=== PATIENT | male | born 1935 | race Caucasian/White ===

== ENCOUNTER 2016-03-12 14:12 | Emergency (ER) | payer MEDICARE, BC ==
[~2016-03-12 14:12] MED LIST: AVOD0.5C PO; DILTSR120 PO; DOXA1TAB35 PO; FLEC50TA PO; RIVA15 PO; SYNT75TA PO
[2016-03-12 14:16] VITALS: BP 116/77; PULSE 134; RESP 18; TEMP 98.2; O2SAT 95
[2016-03-12 14:46] LABS: AUTOMATED NEUTROPHIL # 4.4 TH/MM3 (1.8-7.7); BASOPHIL % 0.7 % (0.0-2.0); EOSINOPHIL # 0.1 TH/MM3 (0-0.4); EOSINOPHIL % 1.5 % (0.0-4.0); HEMATOCRIT 41.2 % (39.0-51.0); HEMO FLAGS DIFF FINAL; LYMPH % 21.4 % (9.0-44.0); LYMPHOCYTE # 1.4 TH/MM3 (1.0-4.8); MEAN CELL VOLUME 91.8 FL (80.0-100.0); MEAN CORPUSCULAR HGB CONC 33.8 % (32.0-36.0); MONO % 8.2 % (0.0-8.0); NEUT % 68.2 % (16.0-70.0); PLATELET COUNT 188 TH/MM3 (150-450); RED BLOOD COUNT 4.49 MIL/MM3 (4.50-5.90); RED CELL DISTRIBUTION WIDTH 13.8 % (11.6-17.2); WHITE BLOOD COUNT 6.5 TH/MM3 (4.0-11.0)
[2016-03-12 14:54] LABS: ANION GAP 8 MEQ/L (5-15); BICARBONATE 25.9 MEQ/L (21.0-32.0); BLOOD UREA NITROGEN 20 MG/DL (7-18); CHLORIDE 108 MEQ/L (98-107); GLOMERULAR FILTRATION RATE 38 ML/MIN (>89); SODIUM (NA) 142 MEQ/L (136-145)
[2016-03-12 15:01] LABS: CREATINE KINASE 85 U/L (39-308)
--- NOTE | 2016-03-12 15:04 | RADRPT ---
EXAM DATE/TIME: 03/12/2016 14:27 [place] COMPARISON: No previous studies available for comparison. INDICATIONS : Chest pain with increased pulse. MEDICAL HISTORY : None. SURGICAL HISTORY : Heart ablasion. ENCOUNTER: Initial ACUITY: 1 day PAIN SCORE: 0/10 LOCATION: Bilateral chest FINDINGS: A single view of the chest demonstrates the lungs to be symmetrically aerated without evidence of mas s, infiltrate or effusion. The cardiomediastinal contours are unremarkable. Osseous structures are intact. CONCLUSION: No acute disease. Kojo Reyes MD FACR on March 12, 2016 at 15:01 Board Certified Radiologist. This report was verified electronically.
[2016-03-12 18:29] VITALS: BP 137/59; PULSE 123; RESP 18; O2SAT 98
--- NOTE | 2016-03-12 18:41 | PD ---
HPI Chief Complaint: Cardiac Complaint Time Seen by Provider: 18:23 Travel History International Travel<30 days: No Contact w/Intl Traveler<30days: No Traveled to known affect area: No History of Present Illness HPI The patient is a 80-year-old male who presents to the emergency department for tachycardia. 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 The patient states earlier today, approximately noon, he felt like his heart rate was elevated. The patient took his pulse and noted was elevated at approximately 135. The patient currently takes amiodarone 100 mg per day and Xarelto 15 mg per day. The patient denies any chest pain, shortness of breath, dizziness, lightheadedness, nausea, or vomiting. The patient simply states he can feel his heart "racing ", but denies any other symptoms. The patient does take medications for enlarged prostate and level thyroxine for hypothyroidism. He denies any current physical complaints except for elevated heart rate. PFSH Past Medical History Narrative Medical Atrial fibrillation, benign prostate hypertrophy Hx Anticoagulant Therapy: Yes (XARELTO) Cardiovascular Problems: Yes (AFIB) Past Surgical History Narrative Surgical Cardiac ablation Social History Tobacco Use: No Allergies-Medications (Allergen,Severity, Reaction): Coded Allergies: No Known Allergies (Unverified , 11/24/13) Reported Meds & Prescriptions Reported Meds & Active Scripts Active Reported Finasteride 5 Mg Tab 5 Mg PO DAILY Do not crush. Amiodarone (Amiodarone HCl) 100 Mg Tab 100 Mg PO DAILY Synthroid (Levothyroxine Sodium) 88 Mcg Tab 88 Mcg PO DAILY Cardura (Doxazosin Mesylate) 2 Mg Tab 2 Mg PO DAILY Xarelto (Rivaroxaban) 15 Mg Tab 15 Mg PO DAILY Review of Systems Except as stated in HPI: all other systems reviewed are Neg General / Constitutional: No: Fever HENT: No: Lightheadedness Cardiovascular: Positive: Palpitations, Irregular Rhythm, Tachycardia, No: Chest Pain or Discomfort, Diaphoresis, Dyspnea on exertion Respiratory: No: Shortness of Breath Gastrointestinal: No: Nausea, Vomiting, Abdominal Pain Neurologic: No: Dizziness Physical Exam Narrative GENERAL: Awake, alert, pleasant 80-year-old male who appears his stated age and is in no acute respiratory distress. SKIN: Warm and dry. HEAD: Atraumatic. Normocephalic. EYES: No injection or drainage. ENT: No nasal bleeding or discharge. Mucous membranes pink and moist. NECK: Trachea midline. No JVD. CARDIOVASCULAR: Regular, tachycardic with a heart rate 135. RESPIRATORY: No accessory muscle use. Clear to auscultation. Breath sounds equal bilaterally. GASTROINTESTINAL: Abdomen soft, non-tender, nondistended. MUSCULOSKELETAL: No obvious deformities. No clubbing. No cyanosis. No edema. NEUROLOGICAL: Awake and alert. No obvious cranial nerve deficits. Motor grossly within normal limits. Normal speech. PSYCHIATRIC: Appropriate mood and affect; insight and judgment normal. Data Data Last Documented VS Vital Signs Date Time Temp Pulse Resp B/P Pulse Ox O2 Delivery O2 Flow Rate FiO2 03/12/16 20:00 59 18 137/59 97 Room Air 03/12/16 14:16 98.2 Orders Electrocardiogram (03/12/16 14:21) Complete Blood Count With Diff (03/12/16 14:21) Basic Metabolic Panel (Bmp) (03/12/16 14:21) Ckmb (Isoenzyme) Profile (03/12/16 14:21) Troponin I (03/12/16 14:21) Chest, Single Ap (03/12/16 14:21) Magnesium (Mg) (03/12/16 18:32) Diltiazem Inj (Cardizem Inj) (03/12/16 18:45) Sodium Chlorid 0.9% 500 Ml Inj (Ns 500 M (03/12/16 18:45) Electrocardiogram (03/12/16 18:33) Labs Laboratory Tests Test 03/12/16 03/12/16 13:30 18:50 White Blood Count 6.5 TH/MM3 Red Blood Count 4.49 MIL/MM3 Hemoglobin 13.9 GM/DL Hematocrit 41.2 % Mean Corpuscular Volume 91.8 FL Mean Corpuscular Hemoglobin 31.0 PG Mean Corpuscular Hemoglobin 33.8 % Concent Red Cell Distribution Width 13.8 % Platelet Count 188 TH/MM3 Mean Platelet Volume 9.8 FL Neutrophils (%) (Auto) 68.2 % Lymphocytes (%) (Auto) 21.4 % Monocytes (%) (Auto) 8.2 % Eosinophils (%) (Auto) 1.5 % Basophils (%) (Auto) 0.7 % Neutrophils # (Auto) 4.4 TH/MM3 Lymphocytes # (Auto) 1.4 TH/MM3 Monocytes # (Auto) 0.5 TH/MM3 Eosinophils # (Auto) 0.1 TH/MM3 Basophils # (Auto) 0.0 TH/MM3 CBC Comment DIFF FINAL Differential Comment Sodium Level 142 MEQ/L Potassium Level 4.0 MEQ/L Chloride Level 108 MEQ/L Carbon Dioxide Level 25.9 MEQ/L Anion Gap 8 MEQ/L Blood Urea Nitrogen 20 MG/DL Creatinine 1.75 MG/DL Estimat Glomerular Filtration 38 ML/MIN Rate Random Glucose 130 MG/DL Calcium Level 8.7 MG/DL Total Creatine Kinase 85 U/L Troponin I LESS THAN 0.02 NG/ML Magnesium Level 2.2 MG/DL MDM Medical Decision Making Medical Screen Exam Complete: Yes Emergency Medical Condition: Yes Medical Record Reviewed: Yes Interpretation(s) EKG reveals a regular rhythm, possibly UA versus PE UA with prolonged MN interval, however, I cannot visualize P wave in most leads. Nonspecific ST changes. Last Impressions Chest X-Ray 03/12/16 1421 Signed Impressions: Service Date/Time: Saturday, March 12, 2016 14:27 - CONCLUSION: No acute disease. Kojo Reyes MD FACR Laboratory Tests Test 03/12/16 13:30 White Blood Count 6.5 TH/MM3 Red Blood Count 4.49 MIL/MM3 Hemoglobin 13.9 GM/DL Hematocrit 41.2 % Mean Corpuscular Volume 91.8 FL Mean Corpuscular Hemoglobin 31.0 PG Mean Corpuscular Hemoglobin 33.8 % Concent Red Cell Distribution Width 13.8 % Platelet Count 188 TH/MM3 Mean Platelet Volume 9.8 FL Neutrophils (%) (Auto) 68.2 % Lymphocytes (%) (Auto) 21.4 % Monocytes (%) (Auto) 8.2 % Eosinophils (%) (Auto) 1.5 % Basophils (%) (Auto) 0.7 % Neutrophils # (Auto) 4.4 TH/MM3 Lymphocytes # (Auto) 1.4 TH/MM3 Monocytes # (Auto) 0.5 TH/MM3 Eosinophils # (Auto) 0.1 TH/MM3 Basophils # (Auto) 0.0 TH/MM3 CBC Comment DIFF FINAL Differential Comment Sodium Level 142 MEQ/L Potassium Level 4.0 MEQ/L Chloride Level 108 MEQ/L Carbon Dioxide Level 25.9 MEQ/L Anion Gap 8 MEQ/L Blood Urea Nitrogen 20 MG/DL Creatinine 1.75 MG/DL Estimat Glomerular Filtration 38 ML/MIN Rate Random Glucose 130 MG/DL Calcium Level 8.7 MG/DL Total Creatine Kinase 85 U/L Troponin I LESS THAN 0.02 NG/ML EKG #2 reveals normal sinus rhythm with a rate of 60, first-degree AV block. Differential Diagnosis Differential diagnosis includes atrial fibrillation with RVR, atrial flutter, accelerated junctional rhythm, sinus tachycardia, pulmonary embolism, hyperthyroidism, dehydration, sympathomimetic crisis. Narrative Course IV was established, labs are drawn and sent, and the patient was placed on cardiac telemetry monitoring and continuous pulse oximetry monitoring. EKG was ordered and interpreted. Chest x-ray was ordered. Chest x-ray was unremarkable. EKG reveals sinus tachycardia with first-degree block versus accelerated junctional rhythm versus atrial fibrillation. The patient was administered Cardizem 20 mg intravenously and normal saline 500 cc. Patient was then monitored in the emergency department. The patient converted to normal sinus rhythm at a rate of 60, first-degree AV block, symptoms have completely resolved. Therefore, Dr. Desai was paged at 7:05 PM. 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 Patient agrees and understands discharge instructions. Return if symptoms worsen or progress. Diagnosis Primary Impression: Paroxysmal atrial fibrillation with RVR Patient Instructions: General Instructions Additional Instructions: Follow-up with your programmer business. Increase amiodarone as directed. Return if symptoms worsen or progress. Disposition: 01 DISCHARGE HOME Condition: Stable Micky Melton MD Mar 12, 2016 18:41
[2016-03-12] MEDS ORDERED: XARE15TA PO (18:43)
[2016-03-12] MEDS ORDERED: CARD2TAB PO (18:43)
[2016-03-12] MEDS ORDERED: SYNT88TA PO (18:43)
[2016-03-12] MEDS ORDERED: AMIO0.1T PO (18:43)
[2016-03-12] MEDS ORDERED: FINA5TAB2 PO (18:44)
[2016-03-12] MEDS ORDERED: DILTIAZEM HCL 25 MG/5 ML VIAL IV ONE (18:45)
[2016-03-12] MEDS ORDERED: SODIUM CHLORID 0.9% 500 ML INJ 500 ML IV ONE (18:45)
--- NOTE | 2016-03-12 19:11 | PD ---
Physical Exam Time Seen by Provider: 19:07 Narrative I assumed care of this patient from Dr. Melton at his end of shift. Please see his initial documentation. Data Data Last Documented VS Vital Signs Date Time Temp Pulse Resp B/P Pulse Ox O2 Delivery O2 Flow Rate FiO2 03/12/16 18:29 123 18 137/59 98 Room Air 03/12/16 14:16 98.2 Orders Electrocardiogram (03/12/16 14:21) Complete Blood Count With Diff (03/12/16 14:21) Basic Metabolic Panel (Bmp) (03/12/16 14:21) Ckmb (Isoenzyme) Profile (03/12/16 14:21) Troponin I (03/12/16 14:21) Chest, Single Ap (03/12/16 14:21) Magnesium (Mg) (03/12/16 18:32) Diltiazem Inj (Cardizem Inj) (03/12/16 18:45) Sodium Chlorid 0.9% 500 Ml Inj (Ns 500 M (03/12/16 18:45) Labs Laboratory Tests Test 03/12/16 03/12/16 13:30 18:50 White Blood Count 6.5 TH/MM3 Red Blood Count 4.49 MIL/MM3 Hemoglobin 13.9 GM/DL Hematocrit 41.2 % Mean Corpuscular Volume 91.8 FL Mean Corpuscular Hemoglobin 31.0 PG Mean Corpuscular Hemoglobin 33.8 % Concent Red Cell Distribution Width 13.8 % Platelet Count 188 TH/MM3 Mean Platelet Volume 9.8 FL Neutrophils (%) (Auto) 68.2 % Lymphocytes (%) (Auto) 21.4 % Monocytes (%) (Auto) 8.2 % Eosinophils (%) (Auto) 1.5 % Basophils (%) (Auto) 0.7 % Neutrophils # (Auto) 4.4 TH/MM3 Lymphocytes # (Auto) 1.4 TH/MM3 Monocytes # (Auto) 0.5 TH/MM3 Eosinophils # (Auto) 0.1 TH/MM3 Basophils # (Auto) 0.0 TH/MM3 CBC Comment DIFF FINAL Differential Comment Sodium Level 142 MEQ/L Potassium Level 4.0 MEQ/L Chloride Level 108 MEQ/L Carbon Dioxide Level 25.9 MEQ/L Anion Gap 8 MEQ/L Blood Urea Nitrogen 20 MG/DL Creatinine 1.75 MG/DL Estimat Glomerular Filtration 38 ML/MIN Rate Random Glucose 130 MG/DL Calcium Level 8.7 MG/DL Total Creatine Kinase 85 U/L Troponin I LESS THAN 0.02 NG/ML Magnesium Level 2.2 MG/DL [facility] Supervised Visit with CELESTINE: No Differential Diagnosis Atrial fibrillation versus atrial flutter versus electrolyte abnormality versus other Narrative Course 80-year-old male presents to the emergency department in atrial fibrillation with RVR and complaints of palpitations. Initially the patient's heart rate is around 130 beats per minute. A bolus of diltiazem 20 mg IV was ordered however was not given to the patient. The patient's heart rate self corrected to sinus rhythm with first-degree AV block with 60 bpm. The patient is now asymptomatic. Labs are unremarkable. 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 Discussed this with the patient and family who verbalizes understanding and agreement with treatment plan. He is stable for discharge. Diagnosis Primary Impression: Paroxysmal atrial fibrillation with RVR Referrals: Gume Desai MD Additional Instruction: Increase Amiodarone to 200 mg daily. Follow-up with your Primary Care Physician. Return to the ED for any acute worsening of symptoms. Med/Other Pt SpecificInfo: No Change to Meds Disposition: 01 DISCHARGE HOME Condition: Stable Carolyn Vasquez Mar 12, 2016 19:11
[2016-03-12 20:00] VITALS: BP 137/59; PULSE 59; RESP 18; O2SAT 97
--- NOTE | 2016-03-13 05:30 | EKG ---
Date Performed: 03/12/2016 Time Performed: 18:33:23 PTAGE: 80 years EKG: BASELINE ARTIFACT PRESENT. PROBABLE SINUS TACHYCARDIA NONSPECIFIC ST & T-WAVE ABNORMALITY A BNORMAL RHYTHM ECG COMPARED TO PRIOR ELECTROCARDIOGRAM, Rate has increased and ST-T wave changes are more marked. PREVIOUS TRACING : 11/24/2013 08.36 DOCTOR: George Bowman Interpretating Date/Time 03/13/2016 05:29:38
--- NOTE | 2016-03-13 05:32 | EKG ---
Date Performed: 03/12/2016 Time Performed: 17:59:17 PTAGE: 80 years EKG: Sinus rhythm WITH FIRST DEGREE AV BLOCK MINIMAL ST DEPRESSION ABNORMAL ECG INTERPRETATION BASED ON A DEFAULT AGE OF 40 YEARS NO SIGNIFICANT CHANGE FROM PRIOR ELECTROCARDIOGRAM. PREVIOUS TRACING : 11/24/2013 08.36 DOCTOR: George Bowman Interpretating Date/Time 03/13/2016 05:32:02
== END 2016-03-12 20:56 | disposition home or self-care (01) ==
LOC: NEPC 14:12
DX: I48.0 Paroxysmal atrial fibrillation (principal); I44.0 Atrioventricular block, first degree; N40.0 Benign prostatic hyperplasia without lower urinary tract symptoms; E03.9 Hypothyroidism, unspecified
CPT/HCPCS: 71010; 80048; 82550; 83735; 84484; 85025; 93005